=== PATIENT | male | born 1990 | race Caucasian/White ===

== ENCOUNTER 2016-11-16 10:35 | Outpatient (CLI) | payer MEDICARE ==
[2016-11-16 11:17] LABS: ALT (SGPT) 61 U/L (8-55); AST (SGOT) 31 U/L (5-34); Alkaline Phosphatase 78 U/L (40-150); Anion Gap 16 mmol/L (10-20); BUN (Urea Nitrogen) 19 mg/dL (8.9-20.6); Bilirubin, Total 0.9 mg/dL (0.2-1.2); Calc. Creatinine Clearance 0 mL/min (70-130); Calcium 10.1 mg/dL (7.8-10.44); Carbon Dioxide 27 mmol/L (22-29); Cardiac Risk 5.7 (Less than 4.5); Chloride 100 mmol/L (98-107); Cholesterol 204 mg/dl (< 200 Desired); Estimated GFR-MDRD 69; Globulin 3.5 g/dL (2.4-3.5); Glucose 109 mg/dL (70-105); HDL Cholesterol 36 mg/dL (>60 Neg Risk); LDL Cholesterol, Calculated 127 mg/dL; Potassium 3.8 mmol/L (3.5-5.1); Protein, Total 8.5 g/dL (6.0-8.3); Sodium 139 mmol/L (136-145); Triglycerides 203 mg/dL (Less than 150)
[2016-11-16 11:19] LABS: #Basophils 0.1 thou/uL (0.0-0.2); #Eosinphils 0.1 thou/uL (0.0-0.7); #Lymphocytes 1.9 thou/uL (1.20-3.40); #Monocytes 0.7 thou/uL (0.11-0.59); #Neutrophils 3.9 thou/uL (1.40-6.50); %Basophils 1.1 % (0.0-1.0); %Eosinophils 1.6 % (0.0-10.0); %Lymphocytes 27.9 % (21.0-51.0); %Monocytes 10.6 % (0.0-10.0); %Neutrophils 58.8 % (42.0-75.0); Hemoglobin 16.9 g/dL (14.0-18.0); Mean Corpuscular HGB CONC 31.4 g/dL (32.0-36.0); Mean Corpuscular Hemoglobin 26.8 pg (27.0-31.0); Mean Corpuscular Volume 85.5 fl (80.0-94.0); Mean Platelet Volume 10.7 fL (7.4-10.4); Platelet Count 225 thou/uL (130-400); RBC Distribution Width 12.7 % (11.5-14.5); Red Blood Cell (RBC) Count 6.29 mill/uL (4.70-6.10); White Blood Cell (WBC) Count 6.6 thou/uL (4.8-10.8)
== END 2016-11-16 10:36 | disposition home or self-care (01) ==
LOC: MADLABBHPM 10:35
PROVIDERS: ATTEND Family Medicine
DX: R03.0 Elevated blood-pressure reading, without diagnosis of hypertension (principal)
CPT/HCPCS: 36415; 80053; 80061; 84443; 85025